=== PATIENT | female | born 1975 | race Hispanic/Latino ===

== ENCOUNTER 2021-11-16 16:03 | Emergency (ER) | payer OTHER ==
[~2021-11-16] VITALS: Ht 172.7 cm; Wt 72.6 kg
[2021-11-16] MEDS ORDERED: IBUPROFEN 600 MG TABLET PO ONE (16:30)
[2021-11-16 17:56] VITALS: BP 134/70
== END 2021-11-16 18:12 | disposition home or self-care (01) ==
LOC: EDH 16:03
DX: M25.512 Pain in left shoulder (principal); M54.2 Cervicalgia; Z79.1 Long term (current) use of non-steroidal anti-inflammatories (NSAID); V49.3XXA Car occupant (driver) (passenger) injured in unspecified nontraffic accident, initial encounter; Y93.89 Activity, other specified; Y92.89 Other specified places as the place of occurrence of the external cause; Y99.8 Other external cause status